=== PATIENT | female | born 1940 | race Caucasian/White ===

== ENCOUNTER 2023-12-29 14:15 | Inpatient (IN) | payer OTHER, SELFPAY ==
[2023-12-29] VITALS (10 sets, daily range): BP systolic 127–209; BP diastolic 77–98
[2023-12-29 10:15] LABS: Glucose - Point of Care 206 mg/dl (70-99)
--- NOTE | 2023-12-29 10:17 | ED.GENMED ---
History of Present Illness
General
Chief Complaint: Unresponsive
Source: ambulance crew
Time Seen by Provider: 12/29/23 10:17
History of Present Illness
History of Present Illness:
83-year-old female presents to the emergency room after being found unresponsive in her bathroom. Patient was found by her son. 911 was called. When they arrived the for the patient to have agonal respirations. She did have a pulse. Rescue
breathing was initiated and the patient was intubated. She did receive ketamine to facilitate the intubation. Postintubation received some Versed and fentanyl. Time of the last ketamine dose was about 945. Patient evidently does not take any
medication. She has no significant medical history.
Past History
Social History
Tobacco: Non-smoker
Personal:
Phy Exam
Physical Exam
Physical Exam:
General: Unresponsive, does not respond to painful stimulus. GCS of 3
Vitals: Hypertensive in the 180s, heart rate 55-60
Head: 1 cm laceration noted left church
Eyes: Midsize pupils sluggishly reactive
Throat: Intubated
Neck: Trachea midline
Lungs: Breath sounds with ventilation
Heart: Regular rate, no murmurs
Abd: Soft, No pulsatile mass
Neuro: No obvious facial asymmetry, no motor response to stimulation, limbs with minimal tone
Skin: Warm, dry, no rash
Extremities: pulses equal b/l, no edema
Course
Orders/Labs/Results
Orders:
Orders
12/29/23
Electrocardiogram (*1) Stat
Reason for Study: Chest Pain
Comment: DONE NO ORDER ENTERED
12/29/23 Lunch
NPO
Allow oral meds: No
Allow clear liquids: No
12/29/23 10:09
CT Head W/o Iv Contrast Urgent
Comment:
Reason For Exam: fall, unresponsive
12/29/23 10:13
Complete Blood Count/With Diff Urgent
Comprehensive Metabolic Panel Urgent
PT/INR [Prothrombin Time] Urgent
PTT Urgent
Troponin I Urgent
12/29/23 10:15
Lactic Acid Urgent
12/29/23 10:21
CT Cervical Spine W/o Iv Contr Urgent
Comment:
Reason For Exam: fall, unresponsive
12/29/23 12:27
Morphine Sulfate 6 mg IV NOW STA
12/29/23 13:12
Atropine Sulfate [Atropine 0.1 mg/ml Syringe] 1 mg .ROUTE .STK-MED ONE
Lorazepam [Ativan] 1 mg IV NOW STA
Lorazepam [Ativan] 2 mg .ROUTE .STK-MED ONE
12/29/23 13:23
Glycopyrrolate [Robinul] 0.2 mg IV NOW STA
12/29/23 13:47
Admit/Transfer Patient As Directed
Co-Sign Provider:
Level of Care: Inpatient admission
Assign to:: Medical/Surgical
Physician / Group: hospitalist--Connor
Diagnosis: acute large intraparenchymal bleed
Reason for Hospitalization: comfort measure--IV morphine IV ativan
Expected length of stay greater than two midnights?: No
ELOS- Estimated Length of Stay in days: 2
I certify the patient meets the requirements for IP care: Yes
12/29/23 13:50
Code Status As Directed
Resuscitation Status: Do not resuscitate
Reached after discussion with pt or family/Healthcare POA: Yes
DNR Bracelet Application ONCE
12/29/23 14:36
Morphine Sulfate See Protocol IV [id number] PRN
Begin protocol on step:: refer to Morphine infusion order
Morphine Sulfate 100 mg/100 ml [Morphine] 100 mg in 100 ml IV PER PROTOCOL
Begin protocol on step:: 2
12/29/23 15:41
Acetaminophen [Tylenol/Feverall] 650 mg RECTAL Q4HPRN PRN
Glycopyrrolate [Robinul] 0.2 mg IV Q4HPRN PRN
Lorazepam [Ativan] 0.5 mg IV Q2HPRN PRN
Lorazepam [Ativan] 2 mg IV Q1HPRN PRN
Morphine Sulfate 1 mg IV Q1HPRN PRN
Ondansetron Injectable [Zofran] 4 mg IV Q6HPRN PRN
12/29/23 15:41
Transfer Patient As Directed
Transfer to: Medical/Surgical
VTE Contraindication Routine
VTE Mechanical Device Contraindication: Comfort Care mgmt
Pharmocologic Contraindication: Comfort Care mgmt
Activity As Directed
Activity Level: Bedrest
Comfort Measures As Directed
Comment: Pain and Dyspnea assessment every 4 hours
End of Life Symptom Assessment Q4
INT (Intravenous Needle Therapy) As Directed
Notify MD As Directed
Notify physician if: if patient has persistent seizure despite medication
Suction Patient As Directed
Route of Suctioning: Oropharyngeal
Comment: prn for secretions
Vital Signs As Directed
Frequency: Per unit guidelines
Abnormal Lab Results
12/29/23 12/29/23
10:13 10:15
WBC 11.9 H 10^3/uL
(4.8-10.8)
MPV 11.1 H fL
(7.4-10.4)
Abs Immat Gran (auto) 0.1 H 10^3/uL
(0-0.05)
Absolute Neuts (auto) 8.0 H 10^3/uL
(1.4-6.5)
Immature Gran % 0.6 H %
(0-0.5)
Chloride 109 H mmol/L
(98-107)
Glucose 190 H mg/dl
(70-99)
Lactic Acid 2.3 H mmol/L
(0.7-2.0)
Troponin I 0.193 H* ng/ml
POC Glucose 206 H mg/dl
(70-99)
12/29/23 10:13
12/29/23 10:13
Vital Signs
Initial and Last Documented VS:
Initial Vital Signs
Pulse Resp Pulse Ox
57 15 100
12/29/23 10:32 12/29/23 10:32 12/29/23 10:32
Last Documented Vital Signs
Temp Pulse Resp BP Pulse Ox
98.8 F 77 18 209/98 82
12/29/23 15:55 12/29/23 15:55 12/29/23 15:55 12/29/23 15:55 12/29/23 15:55
MDM/Problems Addressed
Differential Diagnosis Includes:
Intracranial bleed, ischemic stroke, seizure with postictal state
MDM/Problems Addressed:
Patient presents unresponsive. She was intubated in the field. She has no response to painful stimulus. Patient went to CT and was found to have a very large subarachnoid hemorrhage with intraparenchymal extension. There is evidence of
herniation. Patient's family was here at the hospital and I discussed her presentation with them. Patient has expressed to the family she would not want to live in independent way. They quoted her saying 'if I cannot put my own underwear on I do
not want to be here'. I discussed the patient's presentation with Dr. Barahona who is on-call for neurosurgery. Recommendations are transferred to such treatment this will likely result in the patient requiring a feeding tube and tracheostomy.
Alternatively comfort measures would be appropriate given the size of the bleed. Family ultimately decided on comfort measures. Patient was extubated, given a dose of morphine, Ativan and glycopyrrolate. She will be admitted to the hospital
service.
Chronic conditions affecting care: HTN
*Radiology
Radiology exam reviewed: radiology read reviewed
*Pulse Oximetry
Patient hypoxic: no
*EKG
Interpreted by ED Provider?: Yes
Interpretation: normal
Heart Rate: 61
Rate: normal
Rhythm: sinus
[place]: normal axis
Interval: normal interval
QRS Pattern: left vent hypertrophy
Ischemia: no ischemia
*Shipfitter Interpretation
Rate: normal
Interpretation: normal
Rhythm: sinus
*Critical Care Note
Total Time (30-74mins, 75-104mins- exclusive of procedures): 40 min
comment:
Critical care statement: A total of 40 minutes of critical care time was provided for this patient. This includes management of unstable vital signs, evaluation of the patient at bedside, reviewing the patient's pertinent medical records, discussion
with consultants, review of old EKGs and review of pertinent medical records. This time with separate from time utilized to perform the aforementioned documented procedures
Patient Management
Social determinants of health affecting care: Strong social support
Escalation/DeEscalation of care consider admission/obs:
Please see medical decision making. Presents for 2 tertiary care center with neurosurgical capabilities was considered but family has opted for comfort care
ED Attending Note
-
Portions of this chart may have been created with voice recognition software.� Occasional wrong word or��sound alike� substitutions may have occurred due to the inherent limitations of voice recognition software.
Discharge Plan
Departure
Patient Disposition: Admit
Date of Disposition: 12/29/23
Time of Disposition: 11:27
Admit to: ICU
Presentation/result/management discussed w/ accepting MD/DO: Hospitalist
Discharge Problem:
Subarachnoid hemorrhage, Intraparenchymal hemorrhage of brain, Uncal herniation
Interventions
Interventions:
*Risk Screen - Suicide Last Done: 12/29/23 16:47
*General Assessment Last Done: 12/29/23 10:33
*Neglect/Abuse Screening Last Done: 12/29/23 10:20
ED- Fall Risk Assessment Last Done: 12/29/23 10:25
*ED COVID-19 Vaccine History Last Done: 12/29/23 10:33
*Nursing Disposition Last Done: 12/29/23 15:38
ED- Neurological Assessment Last Done: 12/29/23 10:34
Discharge Date and Time
Discharge Date/Time: 12/29/23 15:42
[2023-12-29 10:29] LABS: % Basophils 0.2 % (0-2); % Eosinophils 0.8 % (0-6); % Immature Granulocytes 0.6 % (0-0.5); % Lymphocytes 26.9 % (20.5-51.1); % Monocytes 4.2 % (1.7-9.3); % Neutrophils 67.3 % (42.2-75.2); Absolute Eosinophils 0.1 10^3/uL (0-0.7); Absolute Immature Granulocytes 0.1 10^3/uL (0-0.05); Absolute Lymphocytes 3.2 10^3/uL (1.2-3.4); Absolute Monocytes 0.5 10^3/uL (0.1-0.6); Hemoglobin 12.9 g/dL (12.0-16.0); Mean Corp Hgb Conc. 33.1 g/dL (33.0-37.0); Mean Corpuscular Hgb 30.3 pg (27.0-31.0); Mean Corpuscular Volume 91.5 fL (81.0-99.0); Mean Platelet Volume 11.1 fL (7.4-10.4); Nucleated Red Blood Cells % 0 %; Platelet Count 233 10^3/uL (130-400); Red Blood Cell Count 4.26 10^6/uL (4.20-5.40); Red Cell Dist. Width 13.3 % (11.5-14.5); White Blood Cell Count 11.9 10^3/uL (4.8-10.8)
[2023-12-29 10:32] LABS: Lactic Acid 2.3 mmol/L (0.7-2.0)
[2023-12-29 10:33] LABS: APTT 26.2 Sec (23.4-35.0)
[2023-12-29 10:34] LABS: ALT (SGPT) 15 U/L (0-35); AST (SGOT) 32 U/L (14-36); Albumin 3.7 g/dl (3.5-5.0); Alkaline Phosphatase 45 U/L (38-126); Blood Urea Nitrogen 17 mg/dl (7-17); Calcium 8.9 mg/dl (8.4-10.2); Carbon Dioxide 24 mmol/L (22-30); Chloride 109 mmol/L (98-107); Glucose 190 mg/dl (70-99); Potassium 4.1 mmol/L (3.5-5.1); Sodium 141 mmol/L (135-145); Total Bilirubin 0.5 mg/dl (0.2-1.3); Total Protein 6.5 g/dl (6.3-8.2); eGFR > 60.00
[2023-12-29 10:46] LABS: Troponin I 0.193 ng/ml
[2023-12-29] MEDS: MORPHINE SULFATE 6 MG IV (12:33)
[2023-12-29] MEDS: ATIVAN 1 MG IV (13:19)
[2023-12-29] MEDS: ROBINUL 0.200000000000000011 MG IV ×2 (13:53→15:48)
--- NOTE | 2023-12-29 13:55 | HPS.HSE ---
Family Physician
-
Family Physician: [facility]
Chief Complaint
-
unresponsive
History of Present Illness
Patient is an 83-year-old female without significant medical history who takes a 'natural' supplement for blood pressure support. Patient was found unresponsive by her son at approximately 9 AM this morning. As per the ED physician
documentation.... EMS services arrived and the patient was agonal. Rescue breathing was initiated and the patient was intubated. Patient was brought to the emergency department. Workup found her to have a large intraparenchymal bleed and
patient's family do not wish for any aggressive measures. Emergency physician spoke with neurosurgery who indicates that prognosis is grave. We are admitting for comfort measures.
Medical History
Past Medical History
Past Medical History: Reports None
Past Surgical History: Reports Other
Additional Past Surgical History:
Unknown
Social History
Unable to obtain full social history at this time due to: Acuity (Information obtained from family at bedside)
Tobacco: Non-smoker
Alcohol: None
Family History
Family History: Other (Brother of dementia but was a'drinker'--mother of dementia)
Allergies / Home Medications
Allergies reflects when Allergies were last updated in [employer].
Home Medications with original date entered in [employer]
Allergy/Medication List:
Allergies
Allergy/AdvReac Type Severity Reaction Status Date / Time
Sulfa (Sulfonamide Allergy Unknown Verified 12/29/23 10:22
Antibiotics)
sulfisoxazole Allergy Unknown Verified 12/29/23 10:22
No home medications
Review of Systems
-
Unable to obtain full review of systems at this time due to: Acuity
Physical Exam
Vital Signs
Vital Signs
Temp Pulse Resp BP Pulse Ox
97.3 F 68 20 200/87 100
12/29/23 10:38 12/29/23 11:30 12/29/23 11:30 12/29/23 11:30 12/29/23 10:38
Physical Exam
General: Well Developed, Well Nourished and Other (Elderly female with gurgling sounds from secretions--unresponsive)
HEENT: NormoCephalic and Anicteric; No Oxygen
Respiratory: Clear; No Wheezes, Rales, Rhonchi or Crackles
Cardiac: S1/S2 and Regular Rhythm; No Murmur
GI: Soft, Non Tender, Non Distended and Normal Bowel Sounds
Musculoskeletal: No Clubbing, No Cyanosis and No Edema
Neuro: No Awake or Alert
Psych: Calm
Laboratory Results
-
12/29/23 10:13
12/29/23 10:13
Laboratory Results
PT 14.0 Sec (11.4-14.6) 12/29/23 10:13
INR 1.10 12/29/23 10:13
APTT 26.2 Sec (23.4-35.0) 12/29/23 10:13
Lactic Acid 2.3 mmol/L (0.7-2.0) H 12/29/23 10:15
Total Bilirubin 0.5 mg/dl (0.2-1.3) 12/29/23 10:13
AST 32 U/L (14-36) 12/29/23 10:13
ALT 15 U/L (0-35) 12/29/23 10:13
Alkaline Phosphatase 45 U/L (38-126) 12/29/23 10:13
Troponin I 0.193 ng/ml H* 12/29/23 10:13
Impression/Plan
-
Pt is an 83 year old female
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
mediastinal shift--in addition, cervical spine CAT scan shows severe extensive acute subarachnoid hemorrhage and severe acute interstitial cardiogenic pulmonary edema no fractures--ADMIT--family is in agreement that patient would not want anything
heroic and if she could not be independent she would not want to be on machines--comfort measures have been initiated--this includes IV morphine with progression to morphine drip if needed, IV Ativan for both agitation/anxiety/seizures, IV
glycopyrrolate for secretion management
DVT prophylaxis--none--comfort measures
code status -- DNR
[2023-12-29] MEDS: MORPHINE 100 IV (14:59)
[2023-12-29] MEDS: MORPHINE SULFATE 2 MG IV ×4 (15:48→17:28)
[2023-12-29] MEDS: ATIVAN 0.5 MG IV (16:11)
--- NOTE | 2023-12-29 16:48 | PTCARENOTE ---
received pt from ED on step 2 morphine gtt, PRN morphine, Ativan and rubinol given when moved to bed, family at bedside.
--- NOTE | 2023-12-29 17:42 | PTCARENOTE ---
pt moved to step 3 morphine!
--- NOTE | 2023-12-29 21:12 | PTCARENOTE ---
While reviewing the morphine protocol, this RN noticed that step 3 would require 4 mg/hr. Increased pt from 3mg/hr to 4mg/hr according to protocol. Patient resting comfortably with family at bedside.
[2023-12-30] MEDS: ROBINUL 0.200000000000000011 MG IV (01:18)
[2023-12-30] MEDS: MORPHINE SULFATE 4 MG IV ×5 (01:25→14:26)
[2023-12-30] MEDS: ATIVAN 0.5 MG IV (01:43)
[2023-12-30] MEDS: NSS (PRESERVATIVE FREE) 0.25 ML IV (01:43)
[2023-12-30 07:25] VITALS: BP 109/57
--- NOTE | 2023-12-30 08:41 | VATNOTE ---
Patient with 2 PHS IV's. IV's not changed out, as patient is on comfort care with a MSO4 gtt.
--- NOTE | 2023-12-30 09:28 | W.PN.HOSP.TC ---
Today's Communication/Plan
-
cont comfort measures
Assessment / Plan
Assessment / Plan
pt is an 83 year old female
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
severe 1.4 cm right to left mediastinal shift---family is in agreement that patient would not want anything heroic and if she could not be independent she would not want to be on machines--comfort measures have been initiated--cont IV morphine drip,
IV Ativan for both agitation/anxiety/seizures, IV glycopyrrolate for secretion management
DVT prophylaxis--none--comfort measures
code status -- DNR
Anticipated Discharge: Today
Subjective/Interval History
-
Date of Service: December 30, 2023
pt appears comfortable--no gurgling--starting to be agonal
Objective Data
-
Vital Signs:
max temp for 24 hours
12/29/23
15:55
Temp 98.8 F
Vital Signs
Temp Pulse Resp BP Pulse Ox
97.2 F 73 20 109/57 79
12/30/23 07:25 12/30/23 07:25 12/30/23 07:25 12/30/23 07:25 12/30/23 07:25
Review of Systems
-
Unable to obtain full review of systems at this time due to: Acuity
Physical Exam
-
General: No Apparent Distress
Respiratory: Clear to Auscultation
Cardiac: Regular Rhythm
--- NOTE | 2023-12-30 13:31 | CM ---
Massive brain hemorrhages. Patient on Comfort measures.
--- NOTE | 2023-12-30 15:15 | PTCARENOTE ---
pt continues on comfort measures, Morphine drip, family at bedside.
[2023-12-30] MEDS: MORPHINE 100 IV (15:58)
--- NOTE | 2023-12-30 16:39 | W.PN.DEATH ---
Pronouncement of
-
Called to see patient to pronounce.
No spontaneous heart tones or respirations noted.
Patient not responsive to verbal stimuli.
Patient is pronounced .
Time of : 16:25
Date of : 12/30/23
Cause of : large intraparenchymal bleed
Family Notified: Yes (at bedside)
--- NOTE | 2023-12-30 16:46 | W.DCSUMMARY ---
Discharge Summary
Discharge Data
Date of Admission: 12/29/23
Date of Discharge: 12/30/23
-
Pending Results: No
Hospital Course
Primary care physician : None Listed
Principal Discharge diagnosis : large intraparenchymal bleed
Chronic Discharge diagnosis : None
Hospital Course : Patient was an 83-year-old female without any significant past medical history who was found unresponsive by her son at 9 AM on the morning of admission. EMS services were called and the patient was found to be agonal. Patient
was intubated and brought to the emergency department. Workup found her to have a large intraparenchymal bleed and the patient's family did not wish for any aggressive measures. Patient was admitted as comfort measures after extubation in the
emergency department.
Patient eventually was started on a morphine drip along with IV glycopyrrolate for secretion management. Patient started to become agonal earlier this morning (12/30/23). Patient passed at 4:25 PM. Pronouncement was made at 4:35 PM. Family at
bedside.
Important imaging findings :
HEAD CT SCAN IMPRESSION:
1. 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
other mass in the region of the right sylvian fissure).
2. SEVERE INTRAVENTRICULAR HEMORRHAGE with severe obstructive hydrocephalus of the left lateral ventricle.
3. 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
4. Severe 1.4 cm right to left mediastinal shift.
CERVICAL SPINE CT SCAN IMPRESSION:
1. SEVERE EXTENSIVE ACUTE SUBARACHNOID HEMORRHAGE throughout the basal cisterns of the brain with extension into the cervical spinal canal.
2. No CT evidence for acute cervical spine fracture.
3. SEVERE ACUTE INTERSTITIAL CARDIOGENIC PULMONARY EDEMA.
4. 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 Severe right neural foraminal narrowing at C6/C7.
5. Mild kyphosis at C5/C6.
6. Endotracheal tube in place.
Discharge Plan
-
Referrals:
UNKNOWN,NO INTERVIEW [Family Provider] -
Prescriptions:
No Action
No Current Medications
0
Discharge Date and Time
Print Language: BELIZEAN
== END 2023-12-30 18:33 | disposition expired | DRG 951 ==
LOC: 2 NORTH 14:15
PROVIDERS: ADMITTING PHYSICIAN Internal Medicine; EMERGENCY PHYSICIAN Emergency Medicine
DX: Z51.5 Encounter for palliative care (principal); I60.9 Nontraumatic subarachnoid hemorrhage, unspecified; G93.5 Compression of brain; G91.1 Obstructive hydrocephalus; Z66 Do not resuscitate
CPT/HCPCS: 70450; 72125; 80053; 82962; 83605; 84484; 85025; 85610; 85730; 93005; 94002; 96365; 96375; 99291